=== PATIENT | female | born 1990 | race Caucasian/White ===

== ENCOUNTER 2022-11-06 21:36 | Emergency (ER) | payer OTHER ==
[2022-11-06 21:44] VITALS: BP 131/76; PULSE 110; RESP 16; TEMP 99.2; BMI 20.7
[2022-11-07 00:50] LABS: BASO % 0.5 % (0-2.0); EOS % 2.8 % (0-4.5); HEMATOCRIT 36.9 % (32.4-45.2); HEMOGLOBIN 12.6 GM/dL (10.7-15.3); LYMPH % 23.7 % (8-40); MCH 30.2 pg (25.7-33.7); MCHC 34.1 g/dl (32.0-36.0); MEAN CELL VOLUME 88.7 fl (80-96); MONO % 7.5 % (3.8-10.2); NEUT % 65.5 % (42.8-82.8); PLATELET COUNT 329 10^3/uL (134-434); RBC 4.16 M/mm3 (3.60-5.2); RDW 12.9 % (11.6-15.6); WHITE BLOOD COUNT 13.8 K/mm3 (4.0-10.0)
[2022-11-07 01:12] LABS: EPI CELLS 2 /uL (0-25.1); HYALINE CASTS 0 /uL (0-3.1); PH,URINE 6.5 (5.0-8.0); URINE APPEARANCE CLEAR; URINE BACTERIA 4 /uL (0-1359); URINE BILIRUBIN NEGATIVE (NEGATIVE); URINE COLOR YELLOW; URINE GLUCOSE (UA) NEGATIVE (NEGATIVE); URINE KETONE NEGATIVE (NEGATIVE); URINE LEUK ESTERASE NEGATIVE (NEGATIVE); URINE NITRITE NEGATIVE (NEGATIVE); URINE PROTEIN NEGATIVE (NEGATIVE); URINE RBC 53 /uL (0-23.9); URINE WBC 3 /uL (0-25.8)
[2022-11-07 02:28] LABS: HCG,QUALITATIVE URINE Negative
[2022-11-07 03:48] LABS: CHLORIDE 109 mmol/L (98-107); POTASSIUM 5.7 mmol/L (3.5-5.1); SODIUM 140 mmol/L (136-145)
[2022-11-07 03:50] LABS: ALBUMIN 4.3 g/dl (3.4-5.0); ANION GAP 8 MMOL/L (8-16); BLOOD UREA NITROGEN 11.7 mg/dL (7-18); CALCIUM 8.6 mg/dL (8.5-10.1); CO2 22 mmol/L (21-32)
[2022-11-07 03:53] LABS: CREATININE 0.8 mg/dL (0.55-1.3)
[2022-11-07 03:54] LABS: GLUCOSE,RANDOM 88 mg/dL (74-106); SGOT/AST 44 U/L (15-37); SGPT/ALT 20 U/L (13-61)
[2022-11-07 03:55] LABS: TOT PROT 8.3 g/dl (6.4-8.2)
[2022-11-07 03:56] LABS: ALK PHOS 59 U/L (45-117)
[2022-11-07 04:20] LABS: BILIRUBIN,TOTAL 0.4 mg/dL (0.2-1)
== END 2022-11-07 03:39 | disposition home or self-care (01) ==
LOC: JER 21:36
DX: N92.0 Excessive and frequent menstruation with regular cycle (principal)
CPT/HCPCS: 36415; 76830-TC; 80053; 81003; 84702; 84703; 85025; 85730; 86850; 86900; 86901; 99284-25

== ENCOUNTER 2023-09-20 13:06 | Emergency (ER) | payer OTHER ==
[2023-09-20 13:26] VITALS: TEMP 99.7; BMI 21.6
[2023-09-20] MEDS ORDERED: ACETAMINOPHEN INJECTION 100 ML IVPB ONE (13:55)
[2023-09-20 14:05] LABS: BASO % 0.3 % (0-2.0); EOS % 0.2 % (0-4.5); HEMATOCRIT 34.1 % (32.4-45.2); HEMOGLOBIN 11.5 GM/dL (10.7-15.3); LYMPH % 6.2 % (8-40); MCH 29.6 pg (25.7-33.7); MCHC 33.7 g/dl (32.0-36.0); MEAN PLT VOLUME 7.8 fl (7.5-11.1); MONO % 5.5 % (3.8-10.2); NEUT % 87.8 % (42.8-82.8); PLATELET COUNT 267 10^3/uL (134-434); RBC 3.88 M/mm3 (3.60-5.2); RDW 13.1 % (11.6-15.6); WHITE BLOOD COUNT 17.7 K/mm3 (4.0-10.0)
[2023-09-20] MEDS: LACTATED RINGERS SOLUTION 1000 ML INFUS.BAG IV ONE (14:09)
[2023-09-20] MEDS: ACETAMINOPHEN 1000 MG/100 ML BAG IVPB ONE (14:09)
[2023-09-20 14:25] LABS: POTASSIUM 3.9 mmol/L (3.5-5.1)
[2023-09-20 14:29] LABS: ALBUMIN 3.8 g/dl (3.4-5.0); BLOOD UREA NITROGEN 15.6 mg/dL (7-18)
[2023-09-20 14:32] LABS: CREATININE 0.8 mg/dL (0.55-1.3)
[2023-09-20 14:34] LABS: BILIRUBIN,TOTAL 0.4 mg/dL (0.2-1); TOT PROT 7.4 g/dl (6.4-8.2)
[2023-09-20 14:43] LABS: ACTIVATED PTT 21.9 SECONDS (25.2-36.5); INR 1.13 (0.83-1.09)
[2023-09-20 18:13] LABS: URINE APPEARANCE TURBID; URINE COLOR ORANGE; URINE GLUCOSE (UA) NEGATIVE (NEGATIVE)
[2023-09-20 18:14] LABS: PH,URINE 5.5 (5.0-8.0); URINE BILIRUBIN MODERATE (NEGATIVE); URINE KETONE TRACE (NEGATIVE)
[2023-09-20 18:15] LABS: URINE NITRITE NEGATIVE (NEGATIVE); URINE PROTEIN 100 (NEGATIVE)
[2023-09-20 18:16] LABS: URINE LEUK ESTERASE TRACE (NEGATIVE)
[2023-09-20 18:17] LABS: EPI CELLS 58.6 /uL (0-25.1); URINE RBC 14674.7 /uL (0-23.9); URINE WBC 156.1 /uL (0-25.8)
[2023-09-20 18:18] LABS: URINE BACTERIA 14.2 /uL (0-1359)
[2023-09-20 19:54] VITALS: BP 101/85; PULSE 103; RESP 16
[2023-09-20 20:07] LABS: HEMATOCRIT 29.2 % (32.4-45.2); HEMOGLOBIN 10.1 GM/dL (10.7-15.3); MCH 30.5 pg (25.7-33.7); MCHC 34.5 g/dl (32.0-36.0); MEAN CELL VOLUME 88.5 fl (80-96); MEAN PLT VOLUME 7.9 fl (7.5-11.1); PLATELET COUNT 242 10^3/uL (134-434); RDW 13.2 % (11.6-15.6); WHITE BLOOD COUNT 13.1 K/mm3 (4.0-10.0)
== END 2023-09-20 20:49 | disposition home or self-care (01) ==
LOC: JER 13:06
PROC: 3E033NZ Introduction of Analgesics, Hypnotics, Sedatives into Peripheral Vein, Percutaneous Approach (ICD-10-PCS; principal; 2023-09-20)
DX: O20.9 Hemorrhage in early pregnancy, unspecified (principal); O26.899 Other specified pregnancy related conditions, unspecified trimester; R55 Syncope and collapse; R42 Dizziness and giddiness; R10.30 Lower abdominal pain, unspecified; Z3A.00 Weeks of gestation of pregnancy not specified
CPT/HCPCS: 36415; 76817-TC; 80053; 81003; 84702; 84703; 85025; 85027; 85610; 85730; 86850; 86900; 86901; 87086; 93005; 93010; 99285-25; J0131

== ENCOUNTER 2023-09-22 12:21 | Emergency (ER) | payer OTHER ==
[2023-09-22 12:52] VITALS: BP 114/75; PULSE 97; RESP 18; TEMP 98; BMI 21.6
[2023-09-22 13:59] LABS: BASO % 0.5 % (0-2.0); EOS % 2.5 % (0-4.5); HEMATOCRIT 24.5 % (32.4-45.2); HEMOGLOBIN 8.4 GM/dL (10.7-15.3); LYMPH % 20.2 % (8-40); MCH 30.8 pg (25.7-33.7); MCHC 34.5 g/dl (32.0-36.0); MEAN CELL VOLUME 89.4 fl (80-96); MEAN PLT VOLUME 7.6 fl (7.5-11.1); MONO % 7.4 % (3.8-10.2); NEUT % 69.4 % (42.8-82.8); PLATELET COUNT 232 10^3/uL (134-434); RBC 2.73 M/mm3 (3.60-5.2); RDW 12.8 % (11.6-15.6); WHITE BLOOD COUNT 8.3 K/mm3 (4.0-10.0)
[2023-09-22 14:17] LABS: POTASSIUM 3.9 mmol/L (3.5-5.1)
[2023-09-22 14:19] LABS: CALCIUM 8.3 mg/dL (8.5-10.1)
[2023-09-22 14:20] LABS: ALBUMIN 3.3 g/dl (3.4-5.0); BLOOD UREA NITROGEN 7.2 mg/dL (7-18)
[2023-09-22 14:24] LABS: CREATININE 0.6 mg/dL (0.55-1.3)
[2023-09-22 14:25] LABS: BILIRUBIN,TOTAL 0.2 mg/dL (0.2-1); TOT PROT 6.5 g/dl (6.4-8.2)
[2023-09-22 14:40] LABS: EPI CELLS 3 /uL (0-25.1); HYALINE CASTS 0 /uL (0-3.1); URINE APPEARANCE CLEAR; URINE BACTERIA 1 /uL (0-1359); URINE BILIRUBIN NEGATIVE (NEGATIVE); URINE COLOR YELLOW; URINE GLUCOSE (UA) NEGATIVE (NEGATIVE); URINE KETONE NEGATIVE (NEGATIVE); URINE LEUK ESTERASE NEGATIVE (NEGATIVE); URINE NITRITE NEGATIVE (NEGATIVE); URINE PROTEIN NEGATIVE (NEGATIVE); URINE RBC 56 /uL (0-23.9); URINE WBC 4 /uL (0-25.8)
[2023-09-22 16:58] LABS: BASO % 0.4 % (0-2.0); EOS % 2.7 % (0-4.5); HEMATOCRIT 23.9 % (32.4-45.2); HEMOGLOBIN 8.1 GM/dL (10.7-15.3); LYMPH % 23.5 % (8-40); MCH 30.1 pg (25.7-33.7); MEAN CELL VOLUME 88.8 fl (80-96); MEAN PLT VOLUME 7.7 fl (7.5-11.1); MONO % 6.3 % (3.8-10.2); NEUT % 67.1 % (42.8-82.8); PLATELET COUNT 263 10^3/uL (134-434); RDW 13.1 % (11.6-15.6); WHITE BLOOD COUNT 8.1 K/mm3 (4.0-10.0)
== END 2023-09-22 17:45 | disposition home or self-care (01) ==
LOC: JER 12:21
DX: O03.9 Complete or unspecified spontaneous abortion without complication (principal); R55 Syncope and collapse
CPT/HCPCS: 36415; 76817-TC; 80053; 81003; 84702; 85025; 87086; 99284-25